=== PATIENT | female | born 1980 | race Caucasian/White ===

== ENCOUNTER 2022-02-22 17:25 | Emergency (ER) | payer OTHER, SELFPAY ==
--- NOTE | ~2022-02-22 | CT_ITS ---
EXAMINATION: CT abdomen pelvis w con DATE: 02/22/2022 19:27 INDICATION: R flank/RLQ pain SINCE tHURS 02/20 , fever TECHNIQUE: Computed tomography (CT) of the abdomen and pelvis was performed with 100 mL Omnipaque-350 intravenous contrast. Automated exposure control and iterative reconstruction technique were employe d. The dose-length product was 1609.96 mGy-cm. COMPARISON: None. FINDINGS: Lower thorax: Unremarkable Liver: Normal. Biliary/Gallbladder: Gallbladder is normal. No bile duct dilation. Pancreas: No mass or duct dilation. Spleen: Normal. Adrenals:No mass. Kidneys: Patchy right renal enhancement. Mild right perinephric stranding. Mild right ureterectasis a nd inflammatory stranding. GI tract: No small or large bowel dilation. Normal appendix. Mesentery/Peritoneum: No ascites, mass, or free air. Retroperitoneum: No mass. Pelvis: Mild bladder wall thickening given the degree of distention. Right corpus luteal cyst. Soft Tissues: Soft tissues and body wall unremarkable. Bones: No acute osseous finding. IMPRESSION: CT findings suggestive of cystitis with right pyelonephritis. Reviewed, dictated and finalized at location K. [employer]INEER
[2022-02-22 17:27] VITALS: BP 154/106; PULSE 112; RESP 14; TEMP 36.8; O2SAT 100
--- NOTE | 2022-02-22 18:23 | ED.FEVER ---
HPI - Fever General Chief Complaint: Fever Stated Complaint: fever Time Seen by Provider: 02/22/22 18:09 History of Present Illness HPI Narrative: Patient is a 41-year-old female here for evaluation of subjective fevers over the past 2 days. Patient tells me that she will have intermittent episodes of shaking and feeling very cold but she has not taken her temperature during these episodes. She reports the symptoms have improved after taking Tylenol. Additionally reports right-sided flank pain, dysuria and urgency for the past 2 days. No cough, shortness of breath, chest pain or leg swelling. Related Data Allergies Allergy/AdvReac Type Severity Reaction Status Date / Time cefaclor [From [facility]] Allergy Swelling Verified 02/22/22 18:13 of Lip/Tongue/Throat Penicillins Allergy Swelling Verified 02/22/22 18:13 of Lip/Tongue/Throat Review of Systems Review of Systems: Gen: Reports chills. Eyes: Denies eye pain or visual change ENT: Denies congestion Respiratory: Denies shortness of breath or cough CV: Denies chest pain or palpitations GI: Denies abdominal pain nausea, emesis or diarrhea reports dysuria urgency and burning. Musculoskeletal: Reports right flank pain. Denies back pain or muscle pain Neuro: Denies numbness, tingling, weakness or focal weakness Skin: Denies rash Except as documented, all other systems reviewed and negative Exam Narrative: APPEARANCE: Well appearing, no pain in distress, well-nourished. Head: Normocephalic and atraumatic. EYES: PERRLA/EOMI, conjunctivae clear NOSE: No nasal drainage EARS: External ear normal in appearance THROAT: Oropharynx is clear. Mucous membranes are moist. NECK: Supple. No adenopathy, no masses. RESPIRATORY: Airway patent, respirations nonlabored. Clear to auscultation bilaterally, no rales, rhonchi, wheezing. CARDIOVASCULAR: Regular rate and rhythm without murmurs, rubs, or gallops. ABDOMINAL: Normoactive bowel sounds. Soft, nontender, nondistended. No rebound tenderness or guarding. MUSCULOSKELETAL: Right-sided CVA tenderness. Extremities are warm and well-perfused. Moves all extremities well. No edema. NEURO: Normal speech. No focal neurologic deficits. SKIN: Skin is warm and dry. No rashes. PSYCHIATRIC: Normal affect/mood.. Course Vital Signs Vital signs: Vital Signs Temperature 98.3 F 02/22/22 17:27 Pulse Rate 112 H 02/22/22 17:27 Respiratory Rate 14 02/22/22 17:27 Blood Pressure 154/106 H 02/22/22 17:27 Pulse Oximetry 100 02/22/22 17:27 Oxygen Delivery Room Air 02/22/22 17:27 Temperature 98.3 F 02/22/22 17:27 Pulse Rate 100 02/22/22 21:15 Respiratory Rate 15 02/22/22 21:15 Blood Pressure 141/101 H 02/22/22 21:15 Pulse Oximetry 100 02/22/22 21:15 Oxygen Delivery Room Air 02/22/22 17:27 MDM - Fever MDM Narrative Medical decision making narrative: 41-year-old female here for evaluation of intermittent chills over the past 2 days associated with urinary symptoms and flank pain. She was initially slightly tachycardic to 112 but afebrile. This improved after IV fluids. Her white count is 12.5. Lactic is negative. Urine shows evidence of infection with positive nitrates, bacteria, leuks and white blood cells. CT abdomen pelvis shows evidence of pyelonephritis. Patient is stable for discharge at this time as she is not immunocompromised. Encouraged her to follow-up with her primary care doctor next week. We did discuss return precautions, she will be given PO Cipro given her cephalosporin allergy. Lab Data 02/22/22 18:34 02/22/22 18:34 Labs: Lab Results 02/22/22 02/22/22 02/22/22 Range/Units 18:34 18:34 18:34 WBC 12.5 H (4.5-10.0) K/mm3 RBC 4.49 (4.2-5.4) M/mm3 Hgb 13.3 (12.0-15.0) g/dL Hct 40.9 (37.0-47.0) % MCV 91.1 (80-100) fl MCH 29.6 (26-34) pg MCHC 32.5 (32-36) g/dl RDW 12.9 (11.5-14.5) % Plt Count 242
[2022-02-22] MEDS: SODIUM CHLORIDE 0.9% IV 1,000 ML 999 ML IV CONT (18:35)
[2022-02-22 18:42] LABS: Basophils Percent Auto 0.3 % (0.2-1.2); Eosinophils Absolute Auto 0.1 K/mm3 (0-0.3); Eosinophils Percent Auto 0.8 % (0-4.4); Hematocrit 40.9 % (37.0-47.0); Hemoglobin 13.3 g/dL (12.0-15.0); Immature Granulocyte Absolute 0.06 K/mm3 (0.00-0.031); Immature Granulocyte Percent A 0.5 % (0-0.5); Lymphocytes Absolute Auto 1.32 K/mm3 (0.9-3.2); Lymphocytes Percent Auto 10.6 % (18.3-44.2); Mean Corpuscular HGB Conc 32.5 g/dl (32-36); Mean Corpuscular Hemoglobin 29.6 pg (26-34); Mean Corpuscular Volume 91.1 fl (80-100); Mean Platelet Volume 11.2 fl (7.4-10.4); Monocytes Percent Auto 7.9 % (2.6-8.5); Neutrophils Percent Auto 79.9 % (45.5-73.1); Platelet Count Result 242 k/mm3 (150-375); Red Blood Count 4.49 M/mm3 (4.2-5.4); Red Cell Distribution Width 12.9 % (11.5-14.5); White Blood Count 12.5 K/mm3 (4.5-10.0)
[2022-02-22 18:43] LABS: Appearance Urine Clear (Clear); Bilirubin Urine Negative (Negative); Blood Urine Negative (Negative); Color Urine Yellow (Yellow); Glucose Urine UA Negative (Negative); Ketones Urine Negative (Negative); Leukocyte Esterase Ur 1+ LEU/UL (Negative); Nitrate Urine Positive (Negative); Protein Urine Negative (Negative); Specific Grav Ur <= 1.005 (1.001-1.035); Urobilinogen Urine 0.2 mg/dL (<2.0); pH Urine 5.5 (5.0-9.0)
[2022-02-22 18:45] LABS: Bacteria Urine 1+ /hpf; RBC Urine 0-2 /hpf (0-2); Squamous Epithelial Cell Urine Occasional /hpf (Few); WBC Urine 16-20 /hpf
[2022-02-22 18:56] LABS: Lactic Acid Reflex 0.8 mmol/L (0.7-2.0)
[2022-02-22 18:57] LABS: Alanine Aminotransferase 14 U/L (6-35); Albumin Level 4.2 g/dL (3.5-5.1); Alkaline Phosphatase 92 U/L (38-126); Anion Gap 7 mmol/L (8-16); Aspartate Amino Transferase 29 U/L (14-36); Blood Urea Nitrogen 11 mg/dL (7-17); Calcium 8.3 mg/dL (8.4-10.2); Carbon Dioxide 25 mmol/L (22-30); Chloride 103 mmol/L (98-107); Estimated CRCL calculation 99 ml/min; Estimated Glomerular Filt Rate > 60; Glucose 112 mg/dL (65-110); Potassium 4.4 mmol/L (3.4-5.0); Sodium 135 mmol/L (137-145)
[2022-02-22 19:02] LABS: Add Urine Microscopic? YES
[2022-02-22 19:20] LABS: Influenza A QL RT-PCR Negative (Negative); Influenza B QL RT-PCR Negative (Negative); SARS-CoV-2 RNA PCR Negative
[2022-02-22] MEDS: CIPROFLOXACIN 500 MG TAB PO (20:25)
[2022-02-22 20:27] VITALS: BP 138/96; PULSE 94; RESP 16; O2SAT 99
[2022-02-22 21:15] VITALS: BP 141/101; PULSE 100; RESP 15; O2SAT 100
== END 2022-02-22 21:20 | disposition home or self-care (01) ==
PROVIDERS: Emergency Provider Physician Assistant
DX: N12 Tubulo-interstitial nephritis, not specified as acute or chronic (principal)
CPT/HCPCS: 36415; 74177; 80053; 81001; 81025; 83605; 85025; 87077; 87086; 87186; 87636; 96360; 99284; A9270; J7030; Q9967

== ENCOUNTER 2024-12-05 07:13 | Emergency (ER) | payer OTHER, SELFPAY ==
[2024-12-05 07:25] VITALS: BP 180/132; PULSE 96; RESP 16; TEMP 36.3; O2SAT 100
[2024-12-05 07:43] LABS: Hematocrit 39.8 % (37.0-47.0); Hemoglobin 12.7 g/dL (12.0-15.0); Immature Granulocyte Percent A 0.3 % (0-0.5); Lymphocytes Absolute Auto 1.68 K/mm3 (0.9-3.2); Mean Corpuscular HGB Conc 31.9 g/dl (32-36); Mean Corpuscular Hemoglobin 28.8 pg (26-34); Mean Corpuscular Volume 90.2 fl (80-100); Nucleated Red Blood Cells Absolute Auto 0.000 K/mm3 (0.0-0.012); Nucleated Red Blood Cells Perc 0.0 % (0.0-0.2); Platelet Count Result 357 k/mm3 (150-375); Red Blood Count 4.41 M/mm3 (4.2-5.4); White Blood Count 8.9 K/mm3 (4.5-10.0)
[2024-12-05 07:44] LABS: Add Urine Microscopic? NO; Appearance Urine Clear (Clear); Glucose Urine UA Negative (Negative); Leukocyte Esterase Ur Negative LEU/UL (Negative); Nitrate Urine Negative (Negative); Specific Grav Ur 1.005 (1.001-1.035)
[2024-12-05] MEDS: SODIUM CHLORIDE 0.9% IV 1,000 ML 999 ML IV CONT (07:47)
[2024-12-05] MEDS: KETOROLAC 30 MG/ML VIAL (*BKC) IV PUSH (07:48)
[2024-12-05 07:55] LABS: Alanine Aminotransferase 13 U/L (6-35); Albumin Level 4.0 g/dL (3.5-5.1); Alkaline Phosphatase 97 U/L (38-126); Anion Gap 7 mmol/L (4-12); Aspartate Amino Transferase 33 U/L (14-36); Bilirubin,Total 0.6 mg/dL (0.2-1.3); Blood Urea Nitrogen 13 mg/dL (7-17); Calcium 8.9 mg/dL (8.4-10.2); Carbon Dioxide 27 mmol/L (22-30); Chloride 101 mmol/L (98-107); Estimated CRCL calculation 106 ml/min; Estimated Glomerular Filt Rate > 60; Glucose 104 mg/dL (65-110); Lipase 100 U/L (23-300); Potassium 4.7 mmol/L (3.4-5.0); Sodium 135 mmol/L (137-145); Total Protein 8.1 g/dL (6.3-8.2)
--- NOTE | 2024-12-05 07:56 | ED.BACK ---
HPI - Back Pain/Injury General Chief Complaint: Back Pain/Injury Stated Complaint: R flank pain since yesterday Time Seen by Provider: 12/05/24 07:21 History of Present Illness HPI Narrative: Patient is a 44-year-old female who presents ER with pain to the right flank region. Ongoing for several days. Cannot identify any aggravating or alleviating factors. No urinary frequency urgency or dysuria. No fall. No injury with lifting. She has tried no pain relieving medications. No dyspnea or pain with deep breath. Related Data Allergies Allergy/AdvReac Type Severity Reaction Status Date / Time cefaclor (From [facility]) Allergy Swelling Verified 12/05/24 07:44 of Lip/Tongue/Throat Penicillins Allergy Swelling Verified 12/05/24 07:44 of Lip/Tongue/Throat Review of Systems Review of Systems: All systems reviewed & are unremarkable except as noted in HPI and below Constitutional: Constitutional: Reports no additional constitutional complaints ENT: Reports system reviewed and no additional complaints, except as documented Cardiovascular: Cardiovascular: Reports no additional cardiovascular complaints Respiratory: Respiratory: Reports no additional respiratory complaints Gastrointestinal: Gastrointestinal: Reports no additional gastrointestinal complaints Musculoskeletal: Musculoskeletal: Reports no additional musculoskeletal complaints [facility] Past Medical History Medical History (Updated 12/05/24 @ 09:29 by Dominic Francis MD) Healthy female adult Surgical History Surgical History (Updated 12/05/24 @ 07:57 by Dominic Francis MD) History of cholecystectomy Exam Narrative: GENERAL: Well-appearing, morbidly obese, and in no acute distress. HEAD: Normocephalic, atraumatic. ENT: Mucous membranes moist. CHEST: Clear to auscultation. No respiratory distress. HEART: Regular rate and rhythm. Normal peripheral pulses. ABDOMEN: Soft, nontender, nondistended. Back: No midline tenderness of the T/L-spine. There is tenderness in low thoracic and upper lumbar paraspinal musculature on the right side. EXTREMITIES: Normal range of motion. No edema. SKIN: Warm, dry, no rash. NEURO: Alert and oriented x3. Course Course Emergency Course: Patient resting comfortably. Pain improved with Toradol. Blood work in urinalysis unremarkable. Appropriate for discharge home with anti-inflammatories muscle relaxers. Vital Signs Vital signs: Vital Signs Temperature 97.4 F L 12/05/24 07:25 Pulse Rate 96 12/05/24 07:25 Respiratory Rate 16 12/05/24 07:25 Blood Pressure 180/132 H 12/05/24 07:25 Pulse Oximetry 100 12/05/24 07:25 Oxygen Delivery Room Air 12/05/24 07:25 Temperature 97.4 F L 12/05/24 07:25 Pulse Rate 78 12/05/24 08:19 Respiratory Rate 16 12/05/24 08:19 Blood Pressure 157/108 H 12/05/24 08:19 Pulse Oximetry 100 12/05/24 08:19 Oxygen Delivery Room Air 12/05/24 07:25 MDM - Back Pain/Injury Lab Data 12/05/24 07:36 12/05/24 07:36 Labs: Lab Results 12/05/24 Range/Units 07:36 WBC 8.9 (4.5-10.0) K/mm3 RBC 4.41 (4.2-5.4) M/mm3 Hgb 12.7 (12.0-15.0) g/dL Hct 39.8 (37.0-47.0) % MCV 90.2 (80-100) fl MCH 28.8 (26-34) pg MCHC 31.9 L (32-36) g/dl RDW 12.9 (11.5-14.5) % Plt Count 357 (150-375) k/mm3 MPV 10.9 H (7.4-10.4) fl Immature Gran % (Auto) 0.3 (0-0.5) % Neut % (Auto) 73.6 H (45.5-73.1) % Lymph % (Auto) 18.8 (18.3-44.2) % Branch % (Auto) 4.8 (2.6-8.5) % Eos % (Auto) 2.2 (0-4.4) % Baso % (Auto) 0.3 (0.2-1.2) % Lymph # (Auto) 1.68 (0.9-3.2) K/mm3 Branch # (Auto) 0.4 (0.1-0.6) K/mm3 Eos # (Auto) 0.2 (0-0.3) K/mm3 Baso # (Auto) 0.0 (0.0-0.1) K/mm3 Abs Immat Gran (auto) 0.03 (0.00-0.031) K/mm3 Absolute Neuts (auto) 6.6 (1.3-6.7) K/mm3 Absolute Nucleated RBC 0.000 (0.0-0.012) K/mm3 Nucleated RBC % 0.0 (0.0-0.2) % Sodium 135 L (137-145) mmol/L Potassium 4.7 (3.4-5.0) mmol/L Chloride 101 (98-107) mmol/L Carbon Dioxide 27 (22-30) mmol/L Anion Gap 7 (4-12) mmol/L BUN 13 (7-17) mg/dL Creatinine 0.79 (0.7-1.0) mg/dL Estim Creat Clear Calc 106 ml/min Estimated GFR > 60 (59 - ) Glucose 104 (65-110) mg/dL Calcium 8.9 (8.4-10.2) mg/dL Total Bilirubin 0.6 (0.2-1.3) mg/dL AST 33 (14-36) U/L ALT 13 (6-35) U/L Alkaline Phosphatase 97 (38-126) U/L Total Protein 8.1 (6.3-8.2) g/dL Albumin 4.0 (3.5-5.1) g/dL Lipase 100 (23-300) U/L Urine Color Yellow (Yellow) Urine Appearance Clear (Clear) Urine pH 6.5 (5.0-9.0) Ur Specific [place] 1.005 (1.001-1.035) Urine Protein Negative (Negative) mg/dL Urine Glucose (UA) Negative (Negative) mg/dL Urine Ketones Negative (Negative) mg/dL Ur Blood (Man) Negative (Negative) Urine Nitrate Negative (Negative) Urine Bilirubin Negative (Negative) Urine Urobilinogen 0.2 (<2.0) mg/dL Leukocyte Esterase Rfl Negative (Negative) VIELKA/UL Discharge Plan Discharge Clinical Impression: Strain of lumbar region Patient Disposition: Home Condition: Stable Instructions: Acute Low Back Pain (ED) Additional Instructions: Please return to the emergency department if you develop severe pain that is not controlled by pain medications or if you are unable to walk because of pain or weakness. Return to the emergency department immediately if you develop fevers, loss of bowel or bladder control (dribbling of urine or having accidents you wouldn't normally have), inability to urinate, numbness of your genital or anal area, or weakness/numbness of your legs or arms as these could all be signs of a serious medical emergency. Patient Language: Green[place]ic Prescriptions: New cyclobenzaprine 10 mg tablet 10 mg PO TID PRN (Reason: muscle spasm) Qty: 20 0RF naproxen 375 mg tablet 375 mg PO BID Qty: 14 0RF No Action ciprofloxacin HCl [Cipro] 500 mg tablet 500 mg PO Q12H Qty: 13 0RF Follow-up/Referrals: Janay De Los Santos MD [Physician, Family Practice] - 1 Week PHYSICIAN,GROUNDS [employer]INTENANCE WORKER [Primary Care Provider, Internal Medicine]
[2024-12-05 08:19] VITALS: BP 157/108; PULSE 78; RESP 16; O2SAT 100
[2024-12-05 09:34] VITALS: BP 145/84; PULSE 78; RESP 18; O2SAT 100
== END 2024-12-05 09:32 | disposition home or self-care (01) ==
PROVIDERS: Emergency Provider Emergency Medicine
DX: S39.012A Strain of muscle, fascia and tendon of lower back, initial encounter (principal); X58.XXXA Exposure to other specified factors, initial encounter
CPT/HCPCS: 36415; 80053; 81003; 83690; 85025; 96361; 96374; 99284; J1885; J7030